=== PATIENT | male | born 1955 | race Caucasian/White ===

== ENCOUNTER 2021-11-12 13:53 | Inpatient (IN) ==
[2021-11-12] MEDS ORDERED: *HR* Dextrose 50 % in Water (Syg) 50 ML SYRINGE IVP PRN (16:52)
[2021-11-12] MEDS ORDERED: D5% in Water 1,000 ML IVC PRN (16:52)
[2021-11-12] MEDS ORDERED: Dextrose Gel 15 GM/37.5 ML TUBE PO PRN ×2 (16:52)
[2021-11-12] MEDS ORDERED: Naloxone 0.4 MG/ML INJ IVP PRN (17:06)
[2021-11-12] MEDS ORDERED: Ondansetron 4 MG/2 ML VIAL IVP PRN (17:06)
[2021-11-12] MEDS: Insulin LISPRO 300 UNITS/3 ML VIAL SUBQ SCH ×2 (17:51→23:09)
[2021-11-12] MEDS: Piperacillin/Tazobactam 3.375 GM in 0.9 % Sodium Chloride Mini Bag 100 ML IVPB SCH (17:52)
[2021-11-12] MEDS ORDERED: *HR* Metoprolol 5 MG/5 ML VIAL IVP PRN (18:18)
[2021-11-12] MEDS: Metoprolol XL (24 HR) Succ 25 MG TAB.ER.24H PO SCH (18:50)
[2021-11-12] MEDS: cloNIDine HCL 0.1 MG TABLET PO SCH (21:29)
[2021-11-12] MEDS: Mirtazapine 15 MG TABLET PO SCH (21:29)
[2021-11-12] MEDS: Apixaban 5 MG TABLET PO SCH (21:30)
[2021-11-13] MEDS: *HR* OxyCODONE Immed Rel 5 MG TABLET PO PRN ×3 (01:15→19:01)
[2021-11-13 05:38] LABS: Basophils # 0.1 K/mcL (0.0-0.2); Basophils % 0.6 %; Eosinophils # 0.4 K/mcL (0.0-0.6); Eosinophils % 2.4 %; Hematocrit 26.2 % (37.5-50.1); Hemoglobin 8.1 g/dL (12.9-16.9); Immature Granulocytes % 0.7 % (0-4); Lymphocytes # 2.7 K/mcL (0.6-4.6); Lymphocytes % 14.5 %; Mean Corpuscular HGB Conc 30.9 g/dL (31.6-35.5); Mean Corpuscular Hemoglobin 27.7 pg (28.0-33.3); Mean Corpuscular Volume 89.7 fL (83.0-100.0); Mean Platelet Volume 10.2 fL (9.4-12.4); Monocytes % 5.6 %; Neutrophils # 13.9 K/mcL (1.6-8.9); Platelet Count 312 K/mcL (140-400); Red Blood Count 2.92 M/mcL (4.19-5.50); Red Cell Distribution Width 14.9 % (11.5-14.5); Segmented Neutrophils % 76.2 %; White Blood Count 18.3 K/mcL (4.3-11.1)
[2021-11-13 05:58] LABS: Calcium 7.9 mg/dL (8.6-10.3); Magnesium 1.4 mg/dL (1.6-2.6); Phosphorous 3.1 mg/dL (2.7-4.5); Potassium 4.5 mEq/L (3.5-5.1)
[2021-11-13] MEDS: Piperacillin/Tazobactam 3.375 GM in 0.9 % Sodium Chloride Mini Bag 100 ML IVPB SCH ×2 (06:23→16:32)
[2021-11-13] MEDS: Apixaban 5 MG TABLET PO SCH ×2 (09:59→20:55)
[2021-11-13] MEDS: cloNIDine HCL 0.1 MG TABLET PO SCH ×2 (09:59→20:55)
[2021-11-13] MEDS: Finasteride 5 MG TABLET PO SCH (09:59)
[2021-11-13] MEDS: Insulin LISPRO 300 UNITS/3 ML VIAL SUBQ SCH ×4 (09:59→21:01)
[2021-11-13] MEDS: Metoprolol XL (24 HR) Succ 25 MG TAB.ER.24H PO SCH (09:59)
[2021-11-13] MEDS ORDERED: Lactulose Oral Soln 20 GM/30 ML UDC PO PRN (10:09)
[2021-11-13] MEDS: mycophenolate mofetiL 250 MG CAPSULE PO SCH ×2 (16:31→20:55)
[2021-11-13] MEDS ORDERED: Perit. Dialysis with Dex 1.5 % 12,000 ML PERITONEAL ONE (19:00)
[2021-11-13 20:50] LABS: Appearance of Body Fluid Clear (Clear)
[2021-11-13] MEDS: Mirtazapine 15 MG TABLET PO SCH ×2 (20:55→20:58)
[2021-11-13] MEDS: Gentamicin Oint 15 GM TUBE TP SCH (21:01)
[2021-11-14 02:47] LABS: Hepatitis B Surface Antibody < 3.10 mIU/mL
[2021-11-14 02:58] LABS: Hepatitis B Surface Antigen Nonreactive (Nonreactive)
[2021-11-14] MEDS: Piperacillin/Tazobactam 3.375 GM in 0.9 % Sodium Chloride Mini Bag 100 ML IVPB SCH ×2 (05:46→18:07)
[2021-11-14] MEDS: *HR* OxyCODONE Immed Rel 5 MG TABLET PO PRN ×3 (05:50→19:02)
[2021-11-14 06:18] LABS: Basophils # 0.1 K/mcL (0.0-0.2); Basophils % 0.7 %; Eosinophils # 0.4 K/mcL (0.0-0.6); Eosinophils % 2.4 %; Hematocrit 26.3 % (37.5-50.1); Hemoglobin 8.1 g/dL (12.9-16.9); Lymphocytes # 2.1 K/mcL (0.6-4.6); Lymphocytes % 12.8 %; Mean Corpuscular HGB Conc 30.8 g/dL (31.6-35.5); Mean Corpuscular Hemoglobin 27.1 pg (28.0-33.3); Mean Platelet Volume 10.3 fL (9.4-12.4); Monocytes # 1.1 K/mcL (0.0-1.3); Monocytes % 6.8 %; Neutrophils # 12.6 K/mcL (1.6-8.9); Platelet Count 317 K/mcL (140-400); Red Blood Count 2.99 M/mcL (4.19-5.50); Red Cell Distribution Width 15.2 % (11.5-14.5); Segmented Neutrophils % 76.3 %; White Blood Count 16.5 K/mcL (4.3-11.1)
[2021-11-14 06:41] LABS: Calcium 7.9 mg/dL (8.6-10.3); Magnesium 1.6 mg/dL (1.6-2.6); Potassium 3.9 mEq/L (3.5-5.1)
[2021-11-14] MEDS: Apixaban 5 MG TABLET PO SCH ×2 (08:45→22:09)
[2021-11-14] MEDS: Multivit/Ca/Min/Fe/FA 1 TAB TABLET PO SCH (08:48)
[2021-11-14] MEDS: Finasteride 5 MG TABLET PO SCH (08:49)
[2021-11-14] MEDS: mycophenolate mofetiL 250 MG CAPSULE PO SCH ×2 (08:49→22:09)
[2021-11-14] MEDS: cloNIDine HCL 0.1 MG TABLET PO SCH ×2 (08:49→22:08)
[2021-11-14] MEDS: Insulin LISPRO 300 UNITS/3 ML VIAL SUBQ SCH ×4 (08:51→22:09)
[2021-11-14] MEDS: Gentamicin Oint 15 GM TUBE TP SCH ×3 (12:20→22:10)
[2021-11-14] MEDS ORDERED: Perit. Dialysis with Dex 1.5 % 12,000 ML PERITONEAL ONE (19:00)
[2021-11-14] MEDS: Mirtazapine 15 MG TABLET PO SCH ×2 (22:13)
[2021-11-15] MEDS: *HR* OxyCODONE Immed Rel 5 MG TABLET PO PRN ×3 (01:05→20:40)
[2021-11-15] MEDS: Piperacillin/Tazobactam 3.375 GM in 0.9 % Sodium Chloride Mini Bag 100 ML IVPB SCH ×2 (06:00→18:16)
[2021-11-15] MEDS: Insulin LISPRO 300 UNITS/3 ML VIAL SUBQ SCH ×4 (09:04→22:21)
[2021-11-15] MEDS: Multivit/Ca/Min/Fe/FA 1 TAB TABLET PO SCH (09:05)
[2021-11-15] MEDS: cloNIDine HCL 0.1 MG TABLET PO SCH ×2 (09:05→20:11)
[2021-11-15] MEDS: Finasteride 5 MG TABLET PO SCH (09:05)
[2021-11-15] MEDS: Apixaban 5 MG TABLET PO SCH ×2 (09:05→20:11)
[2021-11-15] MEDS: Gentamicin Oint 15 GM TUBE TP SCH ×3 (09:06→20:31)
[2021-11-15] MEDS: mycophenolate mofetiL 250 MG CAPSULE PO SCH ×2 (09:25→20:11)
[2021-11-15 14:34] LABS: Basophils # 0.1 K/mcL (0.0-0.2); Basophils % 0.6 %; Eosinophils # 0.3 K/mcL (0.0-0.6); Eosinophils % 1.7 %; Hematocrit 24.2 % (37.5-50.1); Hemoglobin 7.4 g/dL (12.9-16.9); Immature Granulocytes % 1.3 % (0-4); Lymphocytes # 2.3 K/mcL (0.6-4.6); Lymphocytes % 12.1 %; Mean Corpuscular HGB Conc 30.6 g/dL (31.6-35.5); Mean Corpuscular Hemoglobin 27.8 pg (28.0-33.3); Mean Platelet Volume 10.3 fL (9.4-12.4); Monocytes # 1.3 K/mcL (0.0-1.3); Monocytes % 6.8 %; Neutrophils # 14.7 K/mcL (1.6-8.9); Platelet Count 357 K/mcL (140-400); Red Blood Count 2.66 M/mcL (4.19-5.50); Red Cell Distribution Width 15.5 % (11.5-14.5); Segmented Neutrophils % 77.5 %
[2021-11-15 14:51] LABS: Calcium 7.7 mg/dL (8.6-10.3); Magnesium 1.9 mg/dL (1.6-2.6); Potassium 3.4 mEq/L (3.5-5.1)
[2021-11-15 16:08] LABS: Estimated Average Glucose 123 mg/dl; Hemoglobin A1C 5.9 %
[2021-11-15] MEDS ORDERED: Perit. Dialysis with Dex 1.5 % 12,000 ML PERITONEAL ONE (19:00)
[2021-11-15] MEDS: Mirtazapine 15 MG TABLET PO SCH (20:11)
[2021-11-16 05:50] LABS: Basophils # 0.1 K/mcL (0.0-0.2); Basophils % 0.6 %; Eosinophils # 0.4 K/mcL (0.0-0.6); Eosinophils % 2.3 %; Hematocrit 23.1 % (37.5-50.1); Hemoglobin 7.1 g/dL (12.9-16.9); Lymphocytes # 2.1 K/mcL (0.6-4.6); Lymphocytes % 12.7 %; Mean Corpuscular HGB Conc 30.7 g/dL (31.6-35.5); Mean Corpuscular Hemoglobin 27.5 pg (28.0-33.3); Mean Corpuscular Volume 89.5 fL (83.0-100.0); Mean Platelet Volume 10.3 fL (9.4-12.4); Monocytes # 1.1 K/mcL (0.0-1.3); Monocytes % 6.8 %; Neutrophils # 12.4 K/mcL (1.6-8.9); Platelet Count 357 K/mcL (140-400); Red Blood Count 2.58 M/mcL (4.19-5.50); Red Cell Distribution Width 15.8 % (11.5-14.5); Segmented Neutrophils % 76.6 %; White Blood Count 16.2 K/mcL (4.3-11.1)
[2021-11-16] MEDS: Piperacillin/Tazobactam 3.375 GM in 0.9 % Sodium Chloride Mini Bag 100 ML IVPB SCH ×2 (05:53→17:27)
[2021-11-16 06:13] LABS: Calcium 7.7 mg/dL (8.6-10.3); Magnesium 1.8 mg/dL (1.6-2.6); Potassium 3.4 mEq/L (3.5-5.1)
[2021-11-16 06:14] LABS: Albumin 1.7 g/dL (3.5-5.7); Albumin/Globulin Ratio 0.8 (1.1-2.2); Bilirubin,Direct 0.1 mg/dL (0.0-0.2); Bilirubin,Indirect 0.3 mg/dL (0.0-1.0); Bilirubin,Total 0.4 mg/dL (0.3-1.0); Globulin 2.2 g/dL (2.4-3.5); Total Protein 3.9 g/dL (6.4-8.9)
[2021-11-16] MEDS: Multivit/Ca/Min/Fe/FA 1 TAB TABLET PO SCH (09:34)
[2021-11-16] MEDS: Finasteride 5 MG TABLET PO SCH (09:35)
[2021-11-16] MEDS: cloNIDine HCL 0.1 MG TABLET PO SCH ×2 (09:35→21:20)
[2021-11-16] MEDS: *HR* OxyCODONE Immed Rel 5 MG TABLET PO PRN ×2 (09:35→17:27)
[2021-11-16] MEDS: mycophenolate mofetiL 250 MG CAPSULE PO SCH ×2 (09:35→21:20)
[2021-11-16] MEDS: Apixaban 5 MG TABLET PO SCH (09:35)
[2021-11-16] MEDS: Insulin LISPRO 300 UNITS/3 ML VIAL SUBQ SCH ×3 (09:36→17:28)
[2021-11-16] MEDS: Gentamicin Oint 15 GM TUBE TP SCH ×3 (09:36→19:49)
[2021-11-16] MEDS: Magnesium Oxide 400 MG TABLET PO SCH ×2 (13:54→21:20)
[2021-11-16] MEDS ORDERED: Perit. Dialysis with Dex 1.5 % 12,000 ML PERITONEAL ONE (19:00)
[2021-11-16] MEDS: Mirtazapine 15 MG TABLET PO SCH (21:19)
[2021-11-17] MEDS: Insulin LISPRO 300 UNITS/3 ML VIAL SUBQ SCH ×5 (00:55→20:08)
[2021-11-17] MEDS: *HR* OxyCODONE Immed Rel 5 MG TABLET PO PRN ×2 (04:32→20:15)
[2021-11-17 04:39] LABS: Basophils # 0.1 K/mcL (0.0-0.2); Basophils % 0.6 %; Eosinophils # 0.4 K/mcL (0.0-0.6); Eosinophils % 2.6 %; Hematocrit 23.9 % (37.5-50.1); Hemoglobin 7.3 g/dL (12.9-16.9); Immature Granulocytes % 1.3 % (0-4); Lymphocytes # 2.6 K/mcL (0.6-4.6); Lymphocytes % 15.7 %; Mean Corpuscular HGB Conc 30.5 g/dL (31.6-35.5); Mean Corpuscular Hemoglobin 27.9 pg (28.0-33.3); Mean Corpuscular Volume 91.2 fL (83.0-100.0); Mean Platelet Volume 10.3 fL (9.4-12.4); Monocytes # 1.2 K/mcL (0.0-1.3); Monocytes % 7.3 %; Neutrophils # 11.8 K/mcL (1.6-8.9); Platelet Count 369 K/mcL (140-400); Red Blood Count 2.62 M/mcL (4.19-5.50); Red Cell Distribution Width 16.3 % (11.5-14.5); Segmented Neutrophils % 72.5 %; White Blood Count 16.3 K/mcL (4.3-11.1)
[2021-11-17 04:54] LABS: Calcium 7.7 mg/dL (8.6-10.3); Magnesium 1.8 mg/dL (1.6-2.6); Phosphorous 3.1 mg/dL (2.7-4.5); Potassium 3.6 mEq/L (3.5-5.1)
[2021-11-17] MEDS: Piperacillin/Tazobactam 3.375 GM in 0.9 % Sodium Chloride Mini Bag 100 ML IVPB SCH ×2 (05:39→16:28)
[2021-11-17] MEDS: Multivit/Ca/Min/Fe/FA 1 TAB TABLET PO SCH (09:04)
[2021-11-17] MEDS: cloNIDine HCL 0.1 MG TABLET PO SCH ×2 (09:04→20:12)
[2021-11-17] MEDS: Magnesium Oxide 400 MG TABLET PO SCH ×2 (09:04→20:12)
[2021-11-17] MEDS: Finasteride 5 MG TABLET PO SCH (09:05)
[2021-11-17] MEDS: mycophenolate mofetiL 250 MG CAPSULE PO SCH ×2 (09:05→20:12)
[2021-11-17] MEDS: Gentamicin Oint 15 GM TUBE TP SCH ×3 (09:06→19:37)
[2021-11-17] MEDS ORDERED: 0.9 % Sodium Chloride 1,000 ML IV PRN (14:19)
[2021-11-17 18:51] LABS: INR 1.3
[2021-11-17 18:54] LABS: Activated Partial Thrombo Time 32.8 Seconds (26.0-36.0)
[2021-11-17] MEDS ORDERED: Perit. Dialysis with Dex 1.5 % 12,000 ML PERITONEAL ONE (19:00)
[2021-11-17] MEDS: Mirtazapine 15 MG TABLET PO SCH (20:13)
[2021-11-17] MEDS ORDERED: *HR* HYDROmorphone (PF) 1 MG/ML SYRINGE IVP ONE (23:18)
[2021-11-18] MEDS ORDERED: 0.9 % Sodium Chloride 1,000 ML IV PRN (05:30)
[2021-11-18] MEDS: Piperacillin/Tazobactam 3.375 GM in 0.9 % Sodium Chloride Mini Bag 100 ML IVPB SCH ×2 (05:33→17:30)
[2021-11-18 06:08] LABS: Basophils # 0.1 K/mcL (0.0-0.2); Basophils % 0.9 %; Eosinophils # 0.5 K/mcL (0.0-0.6); Eosinophils % 3.2 %; Hematocrit 26.8 % (37.5-50.1); Hemoglobin 8.4 g/dL (12.9-16.9); Immature Granulocytes % 1.6 % (0-4); Lymphocytes # 2.7 K/mcL (0.6-4.6); Lymphocytes % 17.4 %; Mean Corpuscular HGB Conc 31.3 g/dL (31.6-35.5); Mean Corpuscular Hemoglobin 28.5 pg (28.0-33.3); Mean Corpuscular Volume 90.8 fL (83.0-100.0); Monocytes # 1.2 K/mcL (0.0-1.3); Monocytes % 7.5 %; Neutrophils # 10.8 K/mcL (1.6-8.9); Platelet Count 401 K/mcL (140-400); Red Blood Count 2.95 M/mcL (4.19-5.50); Red Cell Distribution Width 17.2 % (11.5-14.5); Segmented Neutrophils % 69.4 %; White Blood Count 15.6 K/mcL (4.3-11.1)
[2021-11-18 06:29] LABS: Potassium 4.8 mEq/L (3.5-5.1)
[2021-11-18] MEDS ORDERED: *HR* Heparin 10,000 UNIT/10 ML VIAL ONE (07:10)
[2021-11-18] MEDS ORDERED: Heparin 1,000 UNITS/500 mL 500 ML ONE (07:11)
[2021-11-18] MEDS ORDERED: Iopamidol - 300 100 ML INFUS..BTL ONE ×2 (07:11→07:50)
[2021-11-18] MEDS ORDERED: 0.9 % Sodium Chloride 2,000 ML ONE (07:11)
[2021-11-18] MEDS: Insulin LISPRO 300 UNITS/3 ML VIAL SUBQ SCH ×5 (07:31→20:54)
[2021-11-18] MEDS ORDERED: *HR* Midazolam HCl 2 MG/2 ML VIAL ONE (07:33)
[2021-11-18] MEDS ORDERED: *HR* FentaNYL (PF) 100 MCG/2 ML VIAL ONE (07:33)
[2021-11-18] MEDS ORDERED: Acetaminophen 325 MG TABLET PO PRN (08:30)
[2021-11-18] MEDS: *HR* OxyCODONE Immed Rel 5 MG TABLET PO PRN ×2 (10:01→22:08)
[2021-11-18] MEDS: Gentamicin Oint 15 GM TUBE TP SCH ×2 (10:02→10:03)
[2021-11-18] MEDS: Finasteride 5 MG TABLET PO SCH (10:02)
[2021-11-18] MEDS: Multivit/Ca/Min/Fe/FA 1 TAB TABLET PO SCH (10:02)
[2021-11-18] MEDS: Magnesium Oxide 400 MG TABLET PO SCH ×2 (10:02→20:51)
[2021-11-18] MEDS: mycophenolate mofetiL 250 MG CAPSULE PO SCH ×2 (10:02→20:53)
[2021-11-18] MEDS: cloNIDine HCL 0.1 MG TABLET PO SCH (10:02)
[2021-11-18] MEDS ORDERED: Perit. Dialysis with Dex 1.5 % 12,000 ML PERITONEAL ONE (19:00)
[2021-11-18] MEDS: Mirtazapine 15 MG TABLET PO SCH (20:51)
[2021-11-19] MEDS: Gentamicin Oint 15 GM TUBE TP SCH ×3 (00:01→21:17)
[2021-11-19] MEDS: cloNIDine HCL 0.1 MG TABLET PO SCH ×3 (05:31→22:05)
[2021-11-19] MEDS: Piperacillin/Tazobactam 3.375 GM in 0.9 % Sodium Chloride Mini Bag 100 ML IVPB SCH (05:34)
[2021-11-19] MEDS: *HR* OxyCODONE Immed Rel 5 MG TABLET PO PRN ×2 (05:35→16:48)
[2021-11-19] MEDS: Multivit/Ca/Min/Fe/FA 1 TAB TABLET PO SCH (09:24)
[2021-11-19] MEDS: Apixaban 5 MG TABLET PO SCH ×2 (09:24→22:05)
[2021-11-19] MEDS: Magnesium Oxide 400 MG TABLET PO SCH ×2 (09:25→22:05)
[2021-11-19] MEDS: Doxycycline 100 MG CAPSULE PO SCH ×2 (09:25→22:05)
[2021-11-19] MEDS: mycophenolate mofetiL 250 MG CAPSULE PO SCH ×2 (09:25→22:05)
[2021-11-19] MEDS: Finasteride 5 MG TABLET PO SCH (09:25)
[2021-11-19] MEDS: Insulin LISPRO 300 UNITS/3 ML VIAL SUBQ SCH ×3 (12:27→22:05)
[2021-11-19] MEDS: Amoxicillin/Clavulanate 500 MG TABLET PO SCH (16:48)
[2021-11-19] MEDS ORDERED: Perit. Dialysis with Dex 1.5 % 12,000 ML PERITONEAL ONE (19:00)
[2021-11-19 20:37] LABS: Basophils # 0.1 K/mcL (0.0-0.2); Basophils % 0.6 %; Eosinophils # 0.2 K/mcL (0.0-0.6); Eosinophils % 1.2 %; Hematocrit 24.7 % (37.5-50.1); Hemoglobin 7.8 g/dL (12.9-16.9); Immature Granulocytes % 1.6 % (0-4); Lymphocytes # 2.3 K/mcL (0.6-4.6); Lymphocytes % 13.2 %; Mean Corpuscular HGB Conc 31.6 g/dL (31.6-35.5); Mean Corpuscular Hemoglobin 28.3 pg (28.0-33.3); Mean Corpuscular Volume 89.5 fL (83.0-100.0); Monocytes # 1.3 K/mcL (0.0-1.3); Monocytes % 7.6 %; Neutrophils # 13.4 K/mcL (1.6-8.9); Platelet Count 356 K/mcL (140-400); Red Blood Count 2.76 M/mcL (4.19-5.50); Red Cell Distribution Width 18.2 % (11.5-14.5); Segmented Neutrophils % 75.8 %; White Blood Count 17.7 K/mcL (4.3-11.1)
[2021-11-19 20:49] LABS: Calcium 7.6 mg/dL (8.6-10.3); Potassium 4.7 mEq/L (3.5-5.1)
[2021-11-19] MEDS: Mirtazapine 15 MG TABLET PO SCH (22:05)
[2021-11-20] MEDS: cloNIDine HCL 0.1 MG TABLET PO SCH ×2 (10:19→20:07)
[2021-11-20] MEDS: mycophenolate mofetiL 250 MG CAPSULE PO SCH ×2 (10:19→20:07)
[2021-11-20] MEDS: Multivit/Ca/Min/Fe/FA 1 TAB TABLET PO SCH (10:19)
[2021-11-20] MEDS: Finasteride 5 MG TABLET PO SCH (10:19)
[2021-11-20] MEDS: Doxycycline 100 MG CAPSULE PO SCH ×2 (10:19→20:07)
[2021-11-20] MEDS: Apixaban 5 MG TABLET PO SCH ×2 (10:24→20:07)
[2021-11-20] MEDS: Insulin LISPRO 300 UNITS/3 ML VIAL SUBQ SCH ×4 (10:32→21:37)
[2021-11-20] MEDS: *HR* OxyCODONE Immed Rel 5 MG TABLET PO PRN ×2 (13:12→20:07)
[2021-11-20] MEDS: Gentamicin Oint 15 GM TUBE TP SCH ×3 (14:29→20:08)
[2021-11-20] MEDS: Magnesium Oxide 400 MG TABLET PO SCH ×2 (14:29→20:07)
[2021-11-20] MEDS: Sennosides/Docusate Sodium TABLET PO SCH ×2 (15:50→20:07)
[2021-11-20] MEDS: polyethylene glycoL 3350 17 GM POWD.PACK PO PRN (15:51)
[2021-11-20] MEDS ORDERED: Perit. Dialysis with Dex 1.5 % 12,000 ML PERITONEAL ONE (19:00)
[2021-11-20 19:04] LABS: Basophils # 0.1 K/mcL (0.0-0.2); Basophils % 0.8 %; Eosinophils # 0.3 K/mcL (0.0-0.6); Eosinophils % 2.7 %; Hematocrit 24.7 % (37.5-50.1); Hemoglobin 7.6 g/dL (12.9-16.9); Immature Granulocytes % 1.9 % (0-4); Lymphocytes # 2.8 K/mcL (0.6-4.6); Lymphocytes % 23.9 %; Mean Corpuscular HGB Conc 30.8 g/dL (31.6-35.5); Mean Corpuscular Hemoglobin 28.5 pg (28.0-33.3); Mean Corpuscular Volume 92.5 fL (83.0-100.0); Mean Platelet Volume 9.8 fL (9.4-12.4); Monocytes % 8.4 %; Neutrophils # 7.3 K/mcL (1.6-8.9); Platelet Count 327 K/mcL (140-400); Red Blood Count 2.67 M/mcL (4.19-5.50); Red Cell Distribution Width 18.6 % (11.5-14.5); Segmented Neutrophils % 62.3 %; White Blood Count 11.8 K/mcL (4.3-11.1)
[2021-11-20 19:34] LABS: Calcium 7.6 mg/dL (8.6-10.3); Potassium 3.7 mEq/L (3.5-5.1)
[2021-11-20] MEDS: Amoxicillin/Clavulanate 500 MG TABLET PO SCH (19:52)
[2021-11-20] MEDS: Mirtazapine 15 MG TABLET PO SCH (20:07)
[2021-11-21] MEDS: *HR* OxyCODONE Immed Rel 5 MG TABLET PO PRN ×2 (07:22→16:22)
[2021-11-21] MEDS: polyethylene glycoL 3350 17 GM POWD.PACK PO PRN (08:37)
[2021-11-21] MEDS: cloNIDine HCL 0.1 MG TABLET PO SCH ×2 (08:38→19:59)
[2021-11-21] MEDS: Apixaban 5 MG TABLET PO SCH ×2 (08:38→19:58)
[2021-11-21] MEDS: Magnesium Oxide 400 MG TABLET PO SCH ×2 (08:39→19:59)
[2021-11-21] MEDS: Sennosides/Docusate Sodium TABLET PO SCH ×2 (08:39→19:58)
[2021-11-21] MEDS: Doxycycline 100 MG CAPSULE PO SCH ×2 (08:39→19:58)
[2021-11-21] MEDS: Multivit/Ca/Min/Fe/FA 1 TAB TABLET PO SCH (08:39)
[2021-11-21] MEDS: Finasteride 5 MG TABLET PO SCH (08:39)
[2021-11-21] MEDS: mycophenolate mofetiL 250 MG CAPSULE PO SCH ×2 (08:39→19:58)
[2021-11-21] MEDS: Insulin LISPRO 300 UNITS/3 ML VIAL SUBQ SCH ×4 (08:42→19:30)
[2021-11-21] MEDS: Gentamicin Oint 15 GM TUBE TP SCH ×3 (08:56→20:00)
[2021-11-21] MEDS ORDERED: Perit. Dialysis with Dex 1.5 % 12,000 ML PERITONEAL ONE (19:31)
[2021-11-21] MEDS: Mirtazapine 15 MG TABLET PO SCH (19:59)
[2021-11-22 03:58] LABS: Calcium 7.9 mg/dL (8.6-10.3); Potassium 3.9 mEq/L (3.5-5.1)
[2021-11-22 04:22] VITALS: O2SAT 97
[2021-11-22 07:28] VITALS: BP 130/67; PULSE 85; TEMP 97.5
[2021-11-22] MEDS: Insulin LISPRO 300 UNITS/3 ML VIAL SUBQ SCH ×2 (08:19→12:21)
[2021-11-22] MEDS: cloNIDine HCL 0.1 MG TABLET PO SCH (08:20)
[2021-11-22] MEDS: Apixaban 5 MG TABLET PO SCH (08:20)
[2021-11-22] MEDS: Sennosides/Docusate Sodium TABLET PO SCH (08:20)
[2021-11-22] MEDS: Magnesium Oxide 400 MG TABLET PO SCH (08:20)
[2021-11-22] MEDS: Doxycycline 100 MG CAPSULE PO SCH (08:20)
[2021-11-22] MEDS: Finasteride 5 MG TABLET PO SCH (08:20)
[2021-11-22] MEDS: Multivit/Ca/Min/Fe/FA 1 TAB TABLET PO SCH (08:20)
[2021-11-22] MEDS: mycophenolate mofetiL 250 MG CAPSULE PO SCH (08:28)
[2021-11-22] MEDS: *HR* OxyCODONE Immed Rel 5 MG TABLET PO PRN (12:20)
[2021-11-22] MEDS: Gentamicin Oint 15 GM TUBE TP SCH ×2 (12:20)
== END 2021-11-22 15:03 | DRG 871 ==
LOC: 2ANU → SUATTDRO 16:14
PROVIDERS: ADMIT General Practice; ATTEND Internal Medicine